=== PATIENT | female | born 2000 | race Hispanic/Latino ===

== ENCOUNTER 2023-07-05 10:39 | Emergency (ER) | payer SELFPAY ==
[2023-07-05 11:22] LABS: #Basophils 0.1 10x3/uL (0.0-0.2); #Eosinphils 0.1 10x3/uL (0.0-0.5); #Monocytes 0.5 10x3/uL (0.0-1.1); #Neutrophils 5.5 10x3/uL (1.5-8.4); %Basophils 0.6 % (0.0-2.0); %Eosinophils 1.8 % (0.0-6.0); %Lymphocytes 19.9 % (18.0-47.0); %Monocytes 5.8 % (0.0-10.0); %Neutrophils 71.5 % (40.0-75.0); Hematocrit 37.6 % (34.9-44.5); Hemoglobin 13.3 g/dL (12.0-15.5); Mean Corpuscular HGB CONC 35.4 g/dL (32.0-36.0); Mean Corpuscular Hemoglobin 31.4 pg (27.0-33.0); Mean Corpuscular Volume 88.7 fl (81.6-98.3); Mean Platelet Volume 9.3 fl (7.4-10.4); Platelet Count 299 10x3/uL (150-450); RBC Distribution Width 11.7 % (11.5-14.5); Red Blood Cell (RBC) Count 4.24 10x6/uL (3.90-5.03); White Blood Cell (WBC) Count 7.7 10x3/uL (3.5-10.5)
[2023-07-05] MEDS ORDERED: Acetaminophen 500 MG TAB ONE (14:13)
[2023-07-05 22:12] LABS: Chlamydia by PCR, Vaginal Swab Not Detected (NotDetected); GC by PCR, Vaginal Swab Not Detected (NotDetected)
== END 2023-07-05 16:08 | disposition home or self-care (01) ==
LOC: CSHERS 10:39
DX: O03.4 Incomplete spontaneous abortion without complication (principal)
CPT/HCPCS: 36415; 76856; 84702; 85025; 86900; 86901; 87480; 87491; 87510; 87591; 87660